=== PATIENT | female | born 1975 | race African-American/Black ===

== ENCOUNTER 2017-03-23 08:30 | Emergency (ER) | payer OTHER ==
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
[2017-03-23 08:42] VITALS: TEMP 98.2; BMI 38.0
[2017-03-23] MEDS ORDERED: ACETAMINOPHEN 325 MG TABLET (FP) PO ONE (09:00)
[2017-03-23] MEDS ORDERED: ACETAMINOPHEN 325 MG TABLET (FP) ONE (09:08)
[2017-03-23 09:26] LABS: URINE APPEARANCE SLCLOUDY; URINE BILIRUBIN NEGATIVE (NEGATIVE); URINE BLOOD NEGATIVE (NEGATIVE); URINE COLOR STRAW; URINE GLUCOSE (UA) NEGATIVE (NEGATIVE); URINE KETONE NEGATIVE (NEGATIVE); URINE NITRITE NEGATIVE (NEGATIVE); URINE PROTEIN NEGATIVE (NEGATIVE); URINE UROBILINOGEN NEGATIVE mg/dL (0.2-1.0)
--- NOTE | 2017-03-23 10:23 | EKG ---
Test Reason : Blood Pressure : / mmHG Vent. Rate : 079 BPM Atrial Rate : 079 BPM P-R Int : 162 ms QRS Dur : 092 ms QT Int : 380 ms P-R-T Axes : 043 -05 007 degrees QTc Int : 435 ms NORMAL SINUS RHYTHM WITH SINUS ARRHYTHMIA INCOMPLETE RIGHT BUNDLE BRANCH BLOCK BORDERLINE ECG NO PREVIOUS ECGS AVAILABLE Confirmed by RENAN LUCAS MD ([id number]) on 03/23/2017 10:23:10 AM Referred By: Confirmed By:RENAN LUCAS MD
[2017-03-23] MEDS ORDERED: IBUPROFEN 600 MG TABLET (FP) PO ONE ×2 (12:13→12:14)
[2017-03-23 12:47] VITALS: BP 140/80; PULSE 88
[2017-03-23 13:35] LABS: URINE LEUK ESTERASE TRACE (NEGATIVE)
[2017-03-23 16:10] LABS: URINE LEUK ESTERASE TRACE (NEGATIVE)
== END 2017-03-23 12:49 | disposition home or self-care (01) ==
LOC: JER 08:30
DX: S16.1XXA Strain of muscle, fascia and tendon at neck level, initial encounter (principal); S80.01XA Contusion of right knee, initial encounter; V43.52XA Car driver injured in collision with other type car in traffic accident, initial encounter; Y92.414 Local residential or business street as the place of occurrence of the external cause; Y93.89 Activity, other specified; Y99.9 Unspecified external cause status
CPT/HCPCS: 70450-TC; 71020-TC; 72125-TC; 73562-TC-RT; 81003; 81015; 84703; 93005; 93010; 99282-25